=== PATIENT | female | born 1955 | race African-American/Black ===

== ENCOUNTER 2020-05-25 17:52 | Outpatient (CLI) | payer MEDICARE ==
--- NOTE | 2020-05-25 18:12 | RAD ---
RIGHT ANKLE THREE VIEWS: 05/25/20 HISTORY: Ankle pain. No history is given of trauma. No signs of fracture, dislocation, or joint effusion. A small spur is seen at the Achilles tendon ins ertion. IMPRESSION: No acute findings. POS: [facility] E
== END 2020-05-25 17:53 | disposition home or self-care (01) ==
LOC: NAV RAD 17:52
PROVIDERS: ATTEND Family Medicine
DX: M25.571 Pain in right ankle and joints of right foot (principal)

== ENCOUNTER 2020-10-11 19:31 | Emergency (ER) | payer MEDICARE, OTHER ==
[2020-10-11] MEDS ORDERED: Ibuprofen 200 MG TAB ONE (20:21)
== END 2020-10-11 20:30 | disposition home or self-care (01) ==
LOC: NAV ERS 19:31
DX: S16.1XXA Strain of muscle, fascia and tendon at neck level, initial encounter (principal); X58.XXXA Exposure to other specified factors, initial encounter
CPT/HCPCS: 99283

== ENCOUNTER 2024-03-09 16:07 | Emergency (ER) | payer MEDICARE, OTHER ==
[~2024-03-09 16:07] MED LIST: Iopamidol 370 76% 100 ML VIAL ONE
[2024-03-09] MEDS ORDERED: Pantoprazole 40 MG VIAL ONE (16:58)
[2024-03-09 17:09] LABS: #Basophils 0.1 thou/uL (0.0-0.2); #Eosinophils 0.1 thou/uL (0.0-0.7); #Lymphocytes 2.4 thou/uL (1.20-3.40); #Monocytes 0.5 thou/uL (0.11-0.59); #Neutrophils 2.6 thou/uL (1.40-6.50); %Basophils 1.7 % (0.0-1.0); %Eosinophils 1.5 % (0.0-10.0); %Monocytes 8.3 % (0.0-10.0); %Neutrophils 46.5 % (42.0-75.0); Hematocrit 42.3 % (36.0-47.0); Hemoglobin 13.7 g/dL (12.0-16.0); Mean Corpuscular HGB CONC 32.4 g/dL (32.0-36.0); Mean Corpuscular Hemoglobin 29.9 pg (27.0-31.0); Mean Corpuscular Volume 92.3 fl (78.0-98.0); Mean Platelet Volume 6.9 fL (7.4-10.4); Platelet Count 311 10x3/uL (130-400); RBC Distribution Width 11.6 % (11.5-14.5); Red Blood Cell (RBC) Count 4.59 mill/uL (4.20-5.40); White Blood Cell (WBC) Count 5.6 10x3/uL (4.8-10.8)
[2024-03-09 17:22] LABS: ALT (SGPT) 51 U/L (8-55); AST (SGOT) 113 U/L (5-34); Albumin 3.9 g/dL (3.4-4.8); Alkaline Phosphatase 130 U/L (40-110); Anion Gap 16 mmol/L (10-20); BUN (Urea Nitrogen) 8 mg/dL (9.8-20.1); Bilirubin, Total 0.9 mg/dL (0.2-1.2); Calc. Creatinine Clearance 0 mL/min (70-130); Calcium 9.3 mg/dL (7.8-10.44); Carbon Dioxide 24 mmol/L (23-31); Chloride 105 mmol/L (98-107); Estimated GFR 67; Globulin 3.5 g/dL (2.4-3.5); Glucose 94 mg/dL (80-115); Lipase 28 U/L (8-78); Potassium 4.2 mmol/L (3.5-5.1); Protein, Total 7.4 g/dL (5.8-8.1); Sodium 141 mmol/L (136-145)
[2024-03-09 17:23] LABS: Troponin I 0.011 ng/mL (< 0.028)
== END 2024-03-09 18:42 | disposition home or self-care (01) ==
LOC: NAV ERS 16:07
DX: K80.20 Calculus of gallbladder without cholecystitis without obstruction (principal); K59.00 Constipation, unspecified
CPT/HCPCS: 71045; 74177; 80053; 83690; 84484; 85025; 93005; J2470; Q9967; 96374

== ENCOUNTER 2025-04-03 09:24 | Emergency (ER) | payer MEDICARE | END 2025-04-03 11:17 | disposition home or self-care (01) | LOC: NAV ERS 09:24 | DX: R09.89 Other specified symptoms and signs involving the circulatory and respiratory systems (principal); R50.9 Fever, unspecified; R05.9 Cough, unspecified; R06.7 Sneezing | CPT/HCPCS: 87428; 99283 ==